=== PATIENT | female | born 1990 | race African-American/Black ===

== ENCOUNTER 2017-04-28 17:07 | Emergency (ER) | payer MEDICAID ==
[2017-04-28] MEDS ORDERED: TYLENOL PO ONE (18:05)
[2017-04-28] MEDS ORDERED: TYLENOL ONE (18:06)
[2017-04-28 18:37] LABS: Hematocrit 41.9 % (30.3-42.9); Hemoglobin 14.2 gm/dl (10.1-14.3); Mean Corpuscular HGB Conc 34 % (30-34); Mean Corpuscular Hemoglobin 34 pg (28-32); Mean Corpuscular Volume 100 fl (79-97); Platelet Count 297 K/mm3 (140-440); Red Blood Count 4.17 M/mm3 (3.65-5.03); Red Cell Distribution Width 13.5 % (13.2-15.2)
[2017-04-28 18:41] LABS: Bacteria,Urine 1+ /HPF (Negative); Bilirubin,Urine NEG (Negative); Blood,Urine MOD (Negative); Color,Urine Yellow (Yellow); Nitrite,Urine NEG (Negative); Protein,Urine <15 mg/dL mg/dL (Negative); Urobilinogen,Urine < 2.0 mg/dL (<2.0)
--- NOTE | 2017-04-28 18:45 | Cat Scan Report ---
FINAL REPORT PROCEDURE: CT HEAD/BRAIN WO CON TECHNIQUE: Computerized tomography of the head was performed without contrast material. HISTORY: throbbing headache s/p childbirth COMPARISON: No prior studies are available for comparison. FINDINGS: There is no CT evidence of intracranial mass, hemorrhage, acute territorial infarction, or hydrocephalus. The intracranial arteries are symmetric in density. The calvarium is intact. Visualized paranasal sinuses and mastoids are aerated. IMPRESSION: No CT evidence of acute abnormality
[2017-04-28 18:59] LABS: Alanine Aminotransferase 19 units/L (7-56); Albumin 3.9 g/dL (3.9-5); BUN/Creatinine Ratio 20; Blood Urea Nitrogen 10 mg/dL (7-17); Hemolysis Index 6
[2017-04-28] MEDS ORDERED: MORPHINE IV ONE ×2 (20:25→22:13)
[2017-04-28] MEDS ORDERED: ZOFRAN IV ONE (20:25)
[2017-04-28] MEDS ORDERED: NACL ONE (20:30)
--- NOTE | 2017-04-28 20:31 | Emergency Department Report ---
HPI - General Chief Complaint: Dyspnea/Respdistress Time Seen by Provider: 04/28/17 20:12 - HPI HPI: Room 20 The patient is a 27-year-old female presenting with a chief complaint headache and chest pain. The patient is status post vaginal delivery 04/18/2017 (no epidural). The patient states a few days ago she had an episode of shortness of breath. The patient states today she developed a throbbing headache that is worse with lying down. The patient states when her head throbs she also has substernal chest throbbing associated with shortness of breath and pleurisy. Patient denies cough, fever nausea or vomiting. Patient states she had a dry mouth and a decreased appetite. The patient states she has not seen her primary physician about the above complaints yet. The patient currently gives her pain a score of 10/10. The patient states she is not breast-feeding Location: Head, chest Duration: [See above] Quality: Throbbing Severity: 10/10 Modifying factors: [see above] Context: [see above] Mode of transportation: [not driving] ED Past Medical Hx - Past Medical History Previous Medical History?: No - Surgical History Additional Surgical History: D&C - Social History Smoking Status: Never Smoker Substance Use Type: None - Medications Home Medications: Home Medications Medication Instructions Recorded Confirmed Last Taken Type Butalb/Acetamin/Caff 50-325-40 2 tab PO Q8HR PRN #20 tablet 04/28/17 Unknown Rx [Fioricet] ED Review of Systems ROS: Stated complaint: HEAD,CHEST,SOB,VENTRAL HERNIA Other details as noted in HPI Physical Exam - Physical Exam Vital Signs: Vital Signs 04/28/17 04/28/17 04/28/17 17:28 18:10 20:11 Temperature 98.9 F Pulse Rate 53 L Respiratory 18 18 18 Rate Blood Pressure 149/93 O2 Sat by Pulse 98 98 Oximetry ED Course Vital Signs 04/28/17 04/28/17 04/28/17 17:28 18:10 20:11 Temperature 98.9 F Pulse Rate 53 L Respiratory 18 18 18 Rate Blood Pressure 149/93 O2 Sat by Pulse 98 98 Oximetry ED Medical Decision Making - Lab Data Result diagrams: 04/28/17 18:24 04/28/17 18:24 Laboratory Tests 04/28/17 04/28/17 04/28/17 18:15 18:24 18:24 WBC RBC Hgb Hct MCV MCH MCHC RDW Plt Count D-Dimer 968.50 H Sodium 142 Potassium 3.8 Chloride 102.3 Carbon Dioxide 24 Anion Gap 20 BUN 10 Creatinine 0.5 L Estimated GFR > 60 BUN/Creatinine Ratio 20 Glucose 107 H Calcium 9.0 Total Bilirubin 0.30 AST 13 ALT 19 Alkaline Phosphatase 108 Total Creatine Kinase Troponin T < 0.010 NT-Pro-B Natriuret Pep 117.0 Total Protein 6.5 Albumin 3.9 Albumin/Globulin Ratio 1.5 Urine Color Yellow Urine Turbidity Clear Urine pH 6.0 Ur Specific [place] 1.009 Urine Protein <15 mg/dl Urine Glucose (UA) Neg Urine Ketones Neg Urine Blood Mod Urine Nitrite Neg Urine Bilirubin Neg Urine Urobilinogen < 2.0 Ur Leukocyte Esterase Sm Urine WBC (Auto) 6.0 Urine RBC (Auto) 3.0 Urine Bacteria (Auto) 1+ 04/28/17 04/28/17 18:24 20:36 WBC 7.4 RBC 4.17 Hgb 14.2 Hct 41.9 MCV 100 H MCH 34 H MCHC 34 RDW 13.5 Plt Count 297 D-Dimer Sodium Potassium Chloride Carbon Dioxide Anion Gap BUN Creatinine Estimated GFR BUN/Creatinine Ratio Glucose Calcium Total Bilirubin AST ALT Alkaline Phosphatase Total Creatine Kinase 112 Troponin T NT-Pro-B Natriuret Pep Total Protein Albumin Albumin/Globulin Ratio Urine Color Urine Turbidity Urine pH Ur Specific [place] Urine Protein Urine Glucose (UA) Urine Ketones Urine Blood Urine Nitrite Urine Bilirubin Urine Urobilinogen Ur Leukocyte Esterase Urine WBC (Auto) Urine RBC (Auto) Urine Bacteria (Auto) Laboratory Tests 04/28/17 04/28/17 04/28/17 18:15 18:24 18:24 WBC RBC Hgb Hct MCV MCH MCHC RDW Plt Count D-Dimer 968.50 H Sodium 142 Potassium 3.8 Chloride 102.3 Carbon Dioxide 24 Anion Gap 20 BUN 10 Creatinine 0.5 L Estimated GFR > 60 BUN/Creatinine Ratio 20 Glucose 107 H Calcium 9.0 Total Bilirubin 0.30 AST 13 ALT 19 Alkaline Phosphatase 108 Total Creatine Kinase Troponin T < 0.010 NT-Pro-B Natriuret Pep 117.0 Total Protein 6.5 Albumin 3.9 Albumin/Globulin Ratio 1.5 Urine Color Yellow Urine Turbidity Clear Urine pH 6.0 Ur Specific [place] 1.009 Urine Protein <15 mg/dl Urine Glucose (UA) Neg Urine Ketones Neg Urine Blood Mod Urine Nitrite Neg Urine Bilirubin Neg Urine Urobilinogen < 2.0 Ur Leukocyte Esterase Sm Urine WBC (Auto) 6.0 Urine RBC (Auto) 3.0 Urine Bacteria (Auto) 1+ 04/28/17 04/28/17 18:24 20:36 WBC 7.4 RBC 4.17 Hgb 14.2 Hct 41.9 MCV 100 H MCH 34 H MCHC 34 RDW 13.5 Plt Count 297 D-Dimer Sodium Potassium Chloride Carbon Dioxide Anion Gap BUN Creatinine Estimated GFR BUN/Creatinine Ratio Glucose Calcium Total Bilirubin AST ALT Alkaline Phosphatase Total Creatine Kinase 112 Troponin T NT-Pro-B Natriuret Pep Total Protein Albumin Albumin/Globulin Ratio Urine Color Urine Turbidity Urine pH Ur Specific [place] Urine Protein Urine Glucose (UA) Urine Ketones Urine Blood Urine Nitrite Urine Bilirubin Urine Urobilinogen Ur Leukocyte Esterase Urine WBC (Auto) Urine RBC (Auto) Urine Bacteria (Auto) - EKG Data -: EKG Interpreted by Al EKG shows normal: sinus rhythm Rate: normal - EKG Data When compared to previous EKG there are: previous EKG unavailable Interpretation: nonspecific ST-T wave riri (T-wave inversion in lead V2) - Radiology Data Radiology results: report reviewed (CT head, CT chest), image reviewed (CT head , CT chest) FINAL REPORT PROCEDURE: CT HEAD/BRAIN WO CON TECHNIQUE: Computerized tomography of the head was performed without contrast material. HISTORY: throbbing headache s/p childbirth COMPARISON: No prior studies are available for comparison. FINDINGS: There is no CT evidence of intracranial mass, hemorrhage, acute territorial infarction, or hydrocephalus. The intracranial arteries are symmetric in density. The calvarium is intact. Visualized paranasal sinuses and mastoids are aerated. IMPRESSION: No CT evidence of acute abnormality Transcribed By: [facility] Dictated By: IVETT DUMONT M.D. Electronically Authenticated By: IVETT DUMONT M.D. Signed Date/Time: 04/28/171439 DD/ 144 TD/TT: 04/28/17 144 FINAL REPORT PROCEDURE: CT ANGIO CHEST TECHNIQUE: Computerized tomographic angiography of the chest was performed after the IV injection of iodinated nonionic contrast including image processing. The image data was postprocessed using 2-dimensional multiplanar reformatted (MPR) and 3-dimensional (MIP and/or volume rendered) techniques. HISTORY: chest pain, shortness of breath, pleurisy COMPARISON: No prior studies are available for comparison. FINDINGS: Bilateral pulmonary arteries and their branches demonstrate normal opacification without filling defects. Aorta is of normal caliber without dissection. Visualized thyroid demonstrates normal density. There is no lymphadenopathy. Hilar structures are within normal limits. Trace bilateral pleural effusions are noted. IMPRESSION: No acute pulmonary infiltrates. Trace bilateral pleural effusions. No evidence of pulmonary embolism. Transcribed By: [facility] Dictated By: RANDY PUENTES Electronically Authenticated By: RANDY PUENTES Signed Date/Time: 04/28/171719 DD/ 19 TD/TT: 04/28/171719 - Medical Decision Making Patient states she is not breast-feeding. I explained that IV contrast for the CT and narcotic pain medication can be passed via breast milk. The patient was informed that she should pump and dump her breast milk for at least 3 days after administration of either should she decide to resume breast-feeding Critical care attestation.: If time is entered above; I have spent that time in minutes in the direct care of this critically ill patient, excluding procedure time. ED Disposition Clinical Impression: Headache, Chest pain Disposition: - TO HOME OR SELFCARE Is pt being admited?: No Does the pt Need Aspirin: No Condition: Stable Instructions: Chest Pain (ED) Additional Instructions: Return to the emergency department immediately should you develop worsening symptoms, fever, inability to tolerate food or liquid or any other concerns. Prescriptions: Butalb/Acetamin/Caff 50-325-40 [Fioricet] 2 tab PO Q8HR PRN #20 tablet PRN Reason: Headache Referrals: PRIMARY CARE, [Primary Care Provider] - 3-5 Days AYAAN GONZALEZ MD [Staff Physician] - 3-5 Days (Dr Gonzalez is a neurologist. Please follow-up with him for further evaluation) Time of Disposition: 21:54
--- NOTE | 2017-04-28 21:25 | Cat Scan Report ---
FINAL REPORT PROCEDURE: CT ANGIO CHEST TECHNIQUE: Computerized tomographic angiography of the chest was performed after the IV injection of iodinated nonionic contrast including image processing. The image data was postprocessed using 2-dimensional multiplanar reformatted (MPR) and 3-dimensional (MIP and/or volume rendered) techniques. HISTORY: chest pain, shortness of breath, pleurisy COMPARISON: No prior studies are available for comparison. FINDINGS: Bilateral pulmonary arteries and their branches demonstrate normal opacification without filling defects. Aorta is of normal caliber without dissection. Visualized thyroid demonstrates normal density. There is no lymphadenopathy. Hilar structures are within normal limits. Trace bilateral pleural effusions are noted. IMPRESSION: No acute pulmonary infiltrates. Trace bilateral pleural effusions. No evidence of pulmonary embolism.
[2017-04-28] MEDS ORDERED: FIORICET PO ONE (22:13)
[2017-04-28 23:43] VITALS: BP 143/89
== END 2017-04-28 22:50 | disposition home or self-care (01) ==
LOC: ED 17:07
DX: R51 Headache (principal); R07.89 Other chest pain
CPT/HCPCS: 36415; 70450; 71275; 80053; 81001; 82550; 83880; 84484; 85027; 85379; 93005; 93010; 96374; 96375; 96376; 99284; J2270; J2405; Q9967